=== PATIENT | female | born 1945 | race Caucasian/White ===

== ENCOUNTER 2018-12-24 06:12 | Day surgery (SDC) | payer MEDICARE, MEDICAID ==
[2018-12-24] VITALS (9 sets, daily range): BP systolic 116–137; BP diastolic 55–67
[~2018-12-24] VITALS: Ht 167.6 cm; Wt 89.2 kg
[~2018-12-24 06:12] MED LIST: ASPI-1264 PO; ATOR40TA PO; CLOP75TA35 PO; DEXILANT PO; DOXY100C2 PO; ESCI20TA PO; FURO80TA87 PO; HYDR-4353 PO; LORAZEPAM PO; METO-384 PO; NAPR220C15 PO; NITR0.4T48 SL; VITAMIN B12 PO; VITAMIN D3 PO; ZOLP5TAB8 PO; acyclovir
[2018-12-24] MEDS ORDERED: LIDOcaine 1% (10mg/ml) 2ml vial ONE (06:39)
[2018-12-24 07:33] LABS: BASOPHILS # (AUTO) 0.1 X10'3 (0-0.2); BASOPHILS % (AUTO) 0.8 % (0-1); EOSINOPHILS # (AUTO) 0.3 X10'3 (0-0.9); EOSINOPHILS % (AUTO) 3.4 % (0-6); HEMATOCRIT 46.4 % (35.0-45.0); HEMOGLOBIN 15.7 g/dl (12.0-16.0); LYMPHOCYTES % (AUTO) 33.4 % (21-51); MEAN CORPUSCULAR HEMOGLOBIN 28.8 PG (27.0-31.0); MEAN CORPUSCULAR HGB CONC 33.8 g/dL (33.0-36.5); MEAN CORPUSCULAR VOLUME 85.3 FL (78-98); MEAN PLATELET VOLUME 10.5 FL (7.4-10.4); MONOCYTES # (AUTO) 0.6 X10'3 (0-0.9); MONOCYTES % (AUTO) 7.2 % (2-12); NEUTROPHILS # (AUTO) 4.9 X10'3 (1.8-7.7); NEUTROPHILS % (AUTO) 55.2 % (42-75); PLATELET COUNT 215 X10'3 (140-440); RED BLOOD COUNT 5.44 X10'6 (4.20-5.60); RED CELL DISTRIBUTION WIDTH 13.9 % (11.5-14.5); WHITE BLOOD COUNT 8.9 X10'3 (4.5-11.0)
[2018-12-24] MEDS ORDERED: LOSA50TA3 PO (07:37)
[2018-12-24] MEDS ORDERED: fentaNYL/PF 50MCG/1 ML 2ML syringe ONE ×2 (07:37→08:50)
[2018-12-24] MEDS ORDERED: midazolam 2 mg/2 ml injection ONE ×2 (07:38→08:45)
[2018-12-24] MEDS ORDERED: LIDOcaine 1% (10mg/ml)w/preservative injection 20ml MDV ONE (07:38)
[2018-12-24] MEDS ORDERED: iohexol 350 MG/ML 50ML vial IV ONE (07:38)
[2018-12-24] MEDS ORDERED: iohexol 350MG/ML 100ml bottle IV ONE ×2 (07:38→09:18)
[2018-12-24 07:41] LABS: ALBUMIN 4.4 G/DL (3.4-5.0); ANION GAP 11 (8-16); BLOOD UREA NITROGEN 23 MG/DL (7-18); BUN/CREATININE RATIO 20.7 (6.6-38.0); CALCIUM 9.4 MG/DL (8.5-10.1); CHLORIDE 100 MMOL/L (99-107); CREATININE 1.11 MG/DL (0.40-0.90); GLUCOSE 134 MG/DL (70-104); SODIUM 140 MMOL/L (135-145); TOTAL CARBON DIOXIDE 29.2 MMOL/L (24-32); eGFR 48 ML/MIN
[2018-12-24 08:02] LABS: PARTIAL THROMBOPLASTIN TIME 28 SECONDS (22-32); PROTHROMBIN TIME 10.1 SECONDS (9.0-12.0)
[2018-12-24] MEDS ORDERED: sod bicarbonate 150mEq in D5W 1,150 ML IV ONE (08:30)
[2018-12-24] MEDS ORDERED: proCHLORperazine 10 MG/2 ml inj ONE (08:42)
[2018-12-24] MEDS ORDERED: potassium Cl 20mEq/100mL bag 100 ML IV ONE (08:42)
[2018-12-24] MEDS ORDERED: heparin 1,000unit/ml 10ml vial 10 ML ONE (09:07)
[2018-12-24] MEDS ORDERED: verapamil 2.5 mg/ml inj IV ONE (09:25)
[2018-12-24] MEDS ORDERED: clopidogrel 300mg tablet ONE (09:46)
[2018-12-24] MEDS ORDERED: normal saline 1000ml 1,000 ML IV SCH (10:25)
== END 2018-12-24 13:20 | disposition home or self-care (01) ==
LOC: SSTAY O 06:12
PROVIDERS: ATTEND Internal Medicine Cardiovascular Disease
DX: I25.119 Atherosclerotic heart disease of native coronary artery with unspecified angina pectoris (principal); I10 Essential (primary) hypertension; E78.5 Hyperlipidemia, unspecified; Z88.0 Allergy status to penicillin; Z88.6 Allergy status to analgesic agent; Z88.8 Allergy status to other drugs, medicaments and biological substances
CPT/HCPCS: 36415; 80048; 85025; 85610; 85730; 92920; 93458; 99152; 99153; A6257; C1874; C9600; J0780; J1644; J2001; J2250; J3010; J3480; J3490; J7030; Q9967; A4620; C1725; C1769; C1894

== ENCOUNTER 2021-04-26 09:02 | Day surgery (SDC) | payer MEDICARE, MEDICAID ==
[~2021-04-26] VITALS: Ht 167.6 cm; Wt 85.2 kg
[2021-04-26] VITALS (12 sets, daily range): BP systolic 100–199; BP diastolic 53–90
[~2021-04-26 09:02] MED LIST changes: +CLOP75TA34 PO; -CLOP75TA35 PO; +LOSA50TA3 PO; -METO-384 PO; -NAPR220C15 PO; -acyclovir
[2021-04-26] MEDS ORDERED: diphenhydrAMINE 25mg capsule PO PRN (09:35)
[2021-04-26 10:21] LABS: BASOPHILS # (AUTO) 0.1 X10'3 (0-0.2); BASOPHILS % (AUTO) 1.1 % (0-1); EOSINOPHILS # (AUTO) 0.3 X10'3 (0-0.9); EOSINOPHILS % (AUTO) 4.4 % (0-6); HEMATOCRIT 39.9 % (35.0-45.0); HEMOGLOBIN 13.7 g/dl (12.0-16.0); LYMPHOCYTES # (AUTO) 2.6 X10'3 (1.1-4.8); LYMPHOCYTES % (AUTO) 39.9 % (21-51); MEAN CORPUSCULAR HEMOGLOBIN 29.4 PG (27.0-31.0); MEAN CORPUSCULAR HGB CONC 34.5 g/dL (33.0-36.5); MEAN CORPUSCULAR VOLUME 85.4 FL (78-98); MEAN PLATELET VOLUME 9.3 FL (7.4-10.4); MONOCYTES # (AUTO) 0.5 X10'3 (0-0.9); MONOCYTES % (AUTO) 7.4 % (2-12); NEUTROPHILS # (AUTO) 3.1 X10'3 (1.8-7.7); NEUTROPHILS % (AUTO) 47.2 % (42-75); PLATELET COUNT 258 X10'3 (140-440); RED BLOOD COUNT 4.67 X10'6 (4.20-5.60); RED CELL DISTRIBUTION WIDTH 13.5 % (11.5-14.5); WHITE BLOOD COUNT 6.5 X10'3 (4.5-11.0)
[2021-04-26 10:43] LABS: ALBUMIN 4.1 G/DL (3.4-5.0); ANION GAP 12 (8-16); BLOOD UREA NITROGEN 10 MG/DL (7-18); BUN/CREATININE RATIO 9.8 (6.6-38.0); CALCIUM 8.7 MG/DL (8.5-10.1); CHLORIDE 105 MMOL/L (99-107); CREATININE 1.02 MG/DL (0.40-0.90); GLUCOSE 127 MG/DL (70-104); MAGNESIUM 2.1 MG/DL (1.5-2.4); POTASSIUM 3.4 MMOL/L (3.5-5.1); SODIUM 141 MMOL/L (135-145); TOTAL CARBON DIOXIDE 24.2 MMOL/L (24-32); eGFR 53 ML/MIN
[2021-04-26] MEDS: normal saline 1,000 ML IV SCH ×3 (11:20→23:48)
[2021-04-26] MEDS ORDERED: LIDOcaine 1% (10mg/ml)w/preservative injection 20ml MDV ONE (11:57)
[2021-04-26] MEDS ORDERED: heparin 1,000unit/ml 10ml vial 10 ML ONE (11:57)
[2021-04-26] MEDS ORDERED: fentaNYL/PF 50MCG/1 ML 2ML syringe ONE (11:57)
[2021-04-26] MEDS ORDERED: midazolam 1 mg/ML 2ml injection ONE ×3 (11:57→13:10)
[2021-04-26] MEDS ORDERED: iohexol 350 MG/ML 50ML vial IV ONE (11:58)
[2021-04-26] MEDS ORDERED: iohexol 350MG/ML 100ml bottle IV ONE ×2 (11:58→13:10)
[2021-04-26] MEDS ORDERED: clopidogrel 300mg tablet ONE (13:18)
[2021-04-26] MEDS ORDERED: CHOL100025 PO (16:55)
[2021-04-26] MEDS ORDERED: DEXL30CA3 PO (16:55)
[2021-04-26] MEDS ORDERED: CYAN500T71 PO (16:55)
[2021-04-26] MEDS ORDERED: ondansetron/PF 4mg/2ml inj IV PRN (18:00)
--- NOTE | 2021-04-26 18:00 | NUR ---
Patient in room PCU 3028. I have received report from FERNIE OBANDO and had the opportunity to ask questions and assume patient care.
[2021-04-26] MEDS ORDERED: HYDROcodone/acetaminophen 5mg/325mg tablet PO PRN (18:05)
[2021-04-26] MEDS ORDERED: proCHLORperazine 10 MG/2 ml inj IV PRN (18:05)
[2021-04-26] MEDS ORDERED: acetaminophen 325mg tablet PO PRN (18:05)
[2021-04-26] MEDS ORDERED: tizanidine 4mg tablet PO PRN (18:30)
[2021-04-26] MEDS ORDERED: nitroGLYCERIN 0.4mg SUBLingual tab SL PRN (18:30)
[2021-04-26] MEDS ORDERED: MELO15TA13 PO (18:31)
[2021-04-26] MEDS ORDERED: PER5325T PO (18:31)
[2021-04-26] MEDS ORDERED: CARB200T40 PO (18:31)
[2021-04-26] MEDS ORDERED: TIZA4TAB5 PO (18:31)
[2021-04-26] MEDS ORDERED: GABA300C PO (18:32)
[2021-04-26] MEDS: furosemide 40mg tablet PO SCH (19:41)
[2021-04-26] MEDS: HYDROcodone/acetaminophen 10/325mg tab PO PRN (19:42)
[2021-04-26] MEDS: carBAMazepine Ext. Release 200 MG TAB.ER.12H PO SCH (19:48)
[2021-04-26] MEDS: gabapentin 300mg capsule PO SCH (20:45)
[2021-04-27] MEDS: normal saline 1,000 ML IV SCH ×3 (02:05→09:48)
[2021-04-27] MEDS: HYDROcodone/acetaminophen 10/325mg tab PO PRN ×2 (02:09→06:23)
[2021-04-27 02:28] VITALS: BP 131/51
[2021-04-27 06:00] VITALS: BP 139/65
--- NOTE | 2021-04-27 06:08 | NUR ---
Problems reprioritized. Patient report given, questions answered & plan of care reviewed with ANTHONY OBANDO.
--- NOTE | 2021-04-27 06:09 | NUR ---
Patient in room PCU 3028. I have received report from GISELLA Kaufman and had the opportunity to ask questions and assume patient care.
[2021-04-27] MEDS ORDERED: aspirin 325mg tablet PO SCH (08:00)
[2021-04-27] MEDS ORDERED: atorvastatin 20mg tablet PO SCH (08:00)
[2021-04-27] MEDS ORDERED: losartan 50mg tablet PO SCH (08:00)
[2021-04-27] MEDS ORDERED: pantoprazole 40mg Tablet.DR PO SCH (08:00)
[2021-04-27] MEDS ORDERED: clopidogrel 75mg tablet PO SCH (08:00)
[2021-04-27] MEDS ORDERED: ESCITALOPRAM OXALATE 5 MG TABLET PO SCH (08:00)
[2021-04-27] MEDS ORDERED: non-formulary drug (Meloxicam (Mobic) 1 TAB) PO SCH (08:00)
[2021-04-27] MEDS ORDERED: cyanocobalamin 500mcg tablet PO SCH (08:00)
[2021-04-27] MEDS ORDERED: cholecalciferol (vitamin D3) 1,000 unit (25mcg) tablet PO SCH (08:00)
[2021-04-27] MEDS: gabapentin 300mg capsule PO SCH (08:51)
[2021-04-27] MEDS: furosemide 40mg tablet PO SCH (08:51)
[2021-04-27 08:52] VITALS: BP_SYST 139
[2021-04-27] MEDS: carBAMazepine Ext. Release 200 MG TAB.ER.12H PO SCH (08:59)
--- NOTE | 2021-04-27 11:27 | NUR ---
Patient stable for discharge per MD orders. PIV discontinued intact. Telemetry monitoring equipment removed and returned to telemetry office. All discharge instructions reviewed with patient, who was given the opportunity to ask questions, and indicated good understanding of all requirements. Patient assisted into w/c and taken to the front of the building, departing in a private vehicle with her friend as set key driver.
== END 2021-04-27 10:00 | disposition home or self-care (01) ==
LOC: SSTAY O 09:02 → PCU 3S 18:43 → SSTAY O 04-27 10:00
PROVIDERS: ATTEND Internal Medicine Cardiovascular Disease
DX: R07.82 Intercostal pain (principal); R07.89 Other chest pain; R06.09 Other forms of dyspnea; I25.119 Atherosclerotic heart disease of native coronary artery with unspecified angina pectoris; E78.5 Hyperlipidemia, unspecified; I10 Essential (primary) hypertension; J45.909 Unspecified asthma, uncomplicated; Z86.73 Personal history of transient ischemic attack (TIA), and cerebral infarction without residual deficits; Z90.49 Acquired absence of other specified parts of digestive tract; Z98.890 Other specified postprocedural states; Z85.42 Personal history of malignant neoplasm of other parts of uterus; Z85.038 Personal history of other malignant neoplasm of large intestine
CPT/HCPCS: 36415; 80048; 83735; 85025; 85610; 93005; 93458; 93571; 99152; 99153; C1751; C1760; C1769; C1874; C1894; C9600; J1644; J2001; J2250; J2405; J3010; J7030; Q0163; Q9967; A4620; A6258; G0378

== ENCOUNTER 2021-11-22 06:29 | Inpatient (IN) | payer MEDICARE, MEDICAID ==
[~2021-11-22] VITALS: Ht 167.6 cm; Wt 84.7 kg
[2021-11-22] VITALS (13 sets, daily range): BP systolic 130–166; BP diastolic 29–85
[~2021-11-22 06:29] MED LIST changes: +CARB200T40 PO; +CHOL100025 PO; +CYAN500T71 PO; -DEXILANT PO; +DEXL30CA3 PO; -DOXY100C2 PO; +GABA300C PO; -HYDR-4353 PO; -LORAZEPAM PO; +MELO15TA13 PO; +PER5325T PO; +TIZA-205 PO; -VITAMIN B12 PO; -VITAMIN D3 PO; -ZOLP5TAB8 PO
[2021-11-22] MEDS ORDERED: diphenhydrAMINE 25mg capsule PO PRN (06:55)
[2021-11-22] MEDS ORDERED: EZET10TA6 PO (07:25)
[2021-11-22] MEDS ORDERED: CARB200T PO (07:25)
[2021-11-22] MEDS ORDERED: POTA8CAP20 PO (07:25)
[2021-11-22] MEDS ORDERED: ASPI-1265 PO (07:25)
[2021-11-22] MEDS ORDERED: ZOLP5TAB2 PO (07:25)
[2021-11-22] MEDS ORDERED: [UNRECOGNIZED DRUG - CODE] PO (07:25)
[2021-11-22] MEDS ORDERED: Acyclovir PO (07:25)
[2021-11-22] MEDS ORDERED: LORA-269 PO (07:25)
[2021-11-22] MEDS ORDERED: dexilant PO (07:25)
[2021-11-22 07:47] LABS: BASOPHILS # (AUTO) 0.1 X10'3 (0-0.2); BASOPHILS % (AUTO) 0.8 % (0-1); EOSINOPHILS # (AUTO) 0.2 X10'3 (0-0.9); EOSINOPHILS % (AUTO) 3.3 % (0-6); HEMOGLOBIN 14.2 g/dl (12.0-16.0); LYMPHOCYTES # (AUTO) 2.6 X10'3 (1.1-4.8); LYMPHOCYTES % (AUTO) 36.8 % (21-51); MEAN CORPUSCULAR HEMOGLOBIN 28.6 PG (27.0-31.0); MEAN CORPUSCULAR HGB CONC 33.7 g/dL (33.0-36.5); MEAN CORPUSCULAR VOLUME 84.7 FL (78-98); MONOCYTES # (AUTO) 0.5 X10'3 (0-0.9); MONOCYTES % (AUTO) 7.6 % (2-12); NEUTROPHILS # (AUTO) 3.6 X10'3 (1.8-7.7); NEUTROPHILS % (AUTO) 51.5 % (42-75); PLATELET COUNT 254 X10'3 (140-440); RED BLOOD COUNT 4.96 X10'6 (4.20-5.60); RED CELL DISTRIBUTION WIDTH 14.3 % (11.5-14.5); WHITE BLOOD COUNT 7.1 X10'3 (4.5-11.0)
[2021-11-22] MEDS: normal saline 1,000 ML IV SCH ×4 (08:04→23:01)
[2021-11-22] MEDS ORDERED: iohexol 350 MG/ML 50ML vial IV ONE (08:18)
[2021-11-22] MEDS ORDERED: midazolam 1 mg/ML 2ml injection ONE ×2 (08:18→11:00)
[2021-11-22] MEDS ORDERED: iohexol 350MG/ML 100ml bottle IV ONE ×2 (08:18→11:37)
[2021-11-22] MEDS ORDERED: fentaNYL/PF 50MCG/1 ML 2ML syringe ONE (08:18)
[2021-11-22] MEDS ORDERED: LIDOcaine 1% (10mg/ml)w/preservative injection 20ml MDV ONE ×2 (08:18→11:13)
[2021-11-22] MEDS ORDERED: heparin 1,000unit/ml 10ml vial 10 ML ONE (08:18)
[2021-11-22 08:38] LABS: ALBUMIN 4.2 G/DL (3.4-5.0); ANION GAP 10 (8-16); BLOOD UREA NITROGEN 8 MG/DL (7-18); BUN/CREATININE RATIO 9.4 (6.6-38.0); CALCIUM 9.1 MG/DL (8.5-10.1); CHLORIDE 106 MMOL/L (99-107); CREATININE 0.85 MG/DL (0.40-0.90); GLUCOSE 132 MG/DL (70-104); POTASSIUM 3.8 MMOL/L (3.5-5.1); SODIUM 140 MMOL/L (135-145); TOTAL CARBON DIOXIDE 23.9 MMOL/L (24-32); eGFR 65 ML/MIN
[2021-11-22 08:48] LABS: MAGNESIUM 2.1 MG/DL (1.5-2.4)
[2021-11-22] MEDS ORDERED: proCHLORperazine 10 MG/2 ml inj ONE (11:12)
[2021-11-22] MEDS ORDERED: nitroGLYCERIN 0.4mg SUBLingual tab SL PRN (12:25)
[2021-11-22] MEDS ORDERED: tizanidine 4mg tablet PO PRN (12:25)
[2021-11-22] MEDS ORDERED: oxyCODONE/APAP 5-325mg tablet PO PRN (12:25)
[2021-11-22] MEDS ORDERED: acetaminophen 325mg tablet PO PRN ×2 (12:35)
[2021-11-22] MEDS ORDERED: magnesium hydroxide 30ml (MOM) UD suspension PO PRN (12:35)
--- NOTE | 2021-11-22 15:30 | NUR ---
Received pt from Short Stay. Right groin CDI no s/s of hematoma. VS WNL, NSR on the monitor. Pt is able to make her needs known. Staying flat for another 30 min per MD orders s/p heart cath.
[2021-11-22] MEDS: furosemide 40mg tablet PO SCH (19:49)
[2021-11-22] MEDS: NABUMETONE 500 MG PO SCH (19:49)
[2021-11-22] MEDS: docusate sod 100mg capsule PO SCH (19:50)
[2021-11-22] MEDS: gabapentin 300mg capsule PO SCH (19:50)
[2021-11-22] MEDS: carBAMazepine 100mg chewable tablet PO SCH (20:00)
[2021-11-22] MEDS ORDERED: zolpidem 5mg tablet PO SCH (21:00)
[2021-11-23 02:00] VITALS: BP 124/54
[2021-11-23 06:00] VITALS: BP 123/52
[2021-11-23] MEDS ORDERED: pantoprazole 40mg Tablet.DR PO SCH (07:30)
[2021-11-23] MEDS ORDERED: atorvastatin 20mg tablet PO SCH (08:00)
[2021-11-23] MEDS ORDERED: clopidogrel 75mg tablet PO SCH (08:00)
[2021-11-23] MEDS: gabapentin 300mg capsule PO SCH (08:00)
[2021-11-23] MEDS ORDERED: losartan 50mg tablet PO SCH (08:00)
[2021-11-23] MEDS ORDERED: potassium chloride 8mEq ER tablet PO SCH (08:00)
[2021-11-23] MEDS ORDERED: ACYCLOVIR PO SCH (08:00)
[2021-11-23] MEDS: furosemide 40mg tablet PO SCH (08:00)
[2021-11-23] MEDS: carBAMazepine 100mg chewable tablet PO SCH (08:00)
[2021-11-23] MEDS: docusate sod 100mg capsule PO SCH (08:00)
[2021-11-23] MEDS ORDERED: ezetimibe 10mg tablet PO SCH (08:00)
[2021-11-23] MEDS ORDERED: aspirin 81mg tab.chew PO SCH (08:00)
[2021-11-23] MEDS: NABUMETONE 500 MG PO SCH (08:00)
[2021-11-23] MEDS ORDERED: ESCITALOPRAM OXALATE 5 MG TABLET PO SCH (08:00)
[2021-11-23] MEDS ORDERED: LORazepam 1 MG tablet PO SCH (08:00)
--- NOTE | 2021-11-23 08:39 | NUR ---
Received call from DR Belkis Mc Pt is ok to go home. Follow up with Dr James in 3 weeks time.
[2021-11-23 10:00] VITALS: BP 143/45
--- NOTE | 2021-11-23 11:10 | NUR ---
Pt stable for D/C per MD orders. ALL d/c ppwk was reviewed with patient and patient verbalized understanding. PIV was removed from L [facility] - pt tolerated well. No new RX at this time. All personal belongings were sent with patient. Pt was wheeled down in W/C by nursing staff to private vehicle. She is driving herself home.
== END 2021-11-23 12:00 | disposition home or self-care (01) | DRG 251 ==
LOC: SSTAY O 06:29 → OBSVTOIN 13:40 → MED 3N 13:40
PROVIDERS: ADMIT Internal Medicine Cardiovascular Disease; ATTEND Internal Medicine Cardiovascular Disease
PROC: 4A023N7 Measurement of Cardiac Sampling and Pressure, Left Heart, Percutaneous Approach (ICD-10-PCS; principal; 2021-11-22)
PROC: 02713ZZ Dilation of Coronary Artery, Two Arteries, Percutaneous Approach (ICD-10-PCS; 2021-11-22)
PROC: B2111ZZ Fluoroscopy of Multiple Coronary Arteries using Low Osmolar Contrast (ICD-10-PCS; 2021-11-22)
PROC: B2151ZZ Fluoroscopy of Left Heart using Low Osmolar Contrast (ICD-10-PCS; 2021-11-22)
PROC: 4A033BC Measurement of Arterial Pressure, Coronary, Percutaneous Approach (ICD-10-PCS; 2021-11-22)
DX: T82.855A Stenosis of coronary artery stent, initial encounter (principal); I25.10 Atherosclerotic heart disease of native coronary artery without angina pectoris; K21.9 Gastro-esophageal reflux disease without esophagitis; Y84.0 Cardiac catheterization as the cause of abnormal reaction of the patient, or of later complication, without mention of misadventure at the time of the procedure; Y92.89 Other specified places as the place of occurrence of the external cause
CPT/HCPCS: 36415; 80048; 83735; 85025; 85610; 92920; 92921; 93005; 93458; 93571; 93572; 99152; 99153; A4620; A6258; C1725; C1751; C1760; C1769; C1894; G0378; J0780; J1644; J2250; J3010; J3490; J7030; Q0163; Q9967

== ENCOUNTER 2022-09-22 09:00 | Day surgery (SDC) | payer MEDICARE, MEDICAID ==
[~2022-09-22] VITALS: Ht 170.2 cm; Wt 81.4 kg
[2022-09-22] VITALS (9 sets, daily range): BP systolic 126–165; BP diastolic 56–83
[~2022-09-22 09:00] MED LIST changes: -ASPI-1264 PO; +ASPI-1265 PO; +Acyclovir PO; +CARB200T PO; -CARB200T40 PO; -CHOL100025 PO; -CYAN500T71 PO; -DEXL30CA3 PO; +EZET10TA6 PO; +LORA-269 PO; -MELO15TA13 PO; +POTA8CAP20 PO; +ZOLP5TAB2 PO; +[UNRECOGNIZED DRUG - CODE] PO; +dexilant PO
[2022-09-22] MEDS ORDERED: diphenhydrAMINE 25mg capsule PO PRN (09:25)
[2022-09-22] MEDS ORDERED: normal saline 1,000 ML IV SCH (09:25)
[2022-09-22] MEDS ORDERED: DOXY100C76 PO (09:52)
[2022-09-22] MEDS ORDERED: MELO-102 PO (09:52)
[2022-09-22 10:11] LABS: BASOPHILS % (AUTO) 0.3 % (0-1); EOSINOPHILS # (AUTO) 0.2 X10'3 (0-0.9); EOSINOPHILS % (AUTO) 2.5 % (0-6); HEMATOCRIT 40.7 % (35.0-45.0); HEMOGLOBIN 14.1 g/dl (12.0-16.0); LYMPHOCYTES # (AUTO) 2.8 X10'3 (1.1-4.8); LYMPHOCYTES % (AUTO) 41.8 % (21-51); MEAN CORPUSCULAR HEMOGLOBIN 29.9 PG (27.0-31.0); MEAN CORPUSCULAR HGB CONC 34.7 g/dL (33.0-36.5); MEAN CORPUSCULAR VOLUME 86.2 FL (78-98); MEAN PLATELET VOLUME 8.8 FL (7.4-10.4); MONOCYTES # (AUTO) 0.4 X10'3 (0-0.9); MONOCYTES % (AUTO) 5.6 % (2-12); NEUTROPHILS # (AUTO) 3.3 X10'3 (1.8-7.7); NEUTROPHILS % (AUTO) 49.8 % (42-75); PLATELET COUNT 256 X10'3 (140-440); RED BLOOD COUNT 4.72 X10'6 (4.20-5.60); RED CELL DISTRIBUTION WIDTH 13.1 % (11.5-14.5); WHITE BLOOD COUNT 6.7 X10'3 (4.5-11.0)
[2022-09-22 10:29] LABS: ALBUMIN 4.1 G/DL (3.4-5.0); ANION GAP 14 (8-16); BLOOD UREA NITROGEN 11 MG/DL (7-18); BUN/CREATININE RATIO 11.1 (6.6-38.0); CHLORIDE 102 MMOL/L (99-107); CREATININE 0.99 MG/DL (0.40-0.90); GLUCOSE 123 MG/DL (70-104); POTASSIUM 3.6 MMOL/L (3.5-5.1); SODIUM 138 MMOL/L (135-145); eGFR 54 ML/MIN
[2022-09-22] MEDS ORDERED: iohexol 350MG/ML 100ml bottle IV ONE ×2 (11:28→13:03)
[2022-09-22] MEDS ORDERED: heparin 1,000unit/ml 10ml vial 10 ML ONE (11:28)
[2022-09-22] MEDS ORDERED: LIDOcaine 1% 30ml preserv. free vial ONE (11:28)
[2022-09-22] MEDS ORDERED: fentaNYL/PF 50MCG/1 ML 2ML syringe ONE (11:28)
[2022-09-22] MEDS ORDERED: midazolam 1 mg/ML 2ml injection ONE ×2 (11:28→12:37)
[2022-09-22] MEDS ORDERED: clopidogrel 300mg tablet ONE ×2 (13:52→13:59)
[2022-09-22] MEDS ORDERED: ondansetron/PF 4mg/2ml inj IV PRN (14:25)
[2022-09-22] MEDS ORDERED: HYDROcodone/acetaminophen 5mg/325mg tablet PO PRN (14:25)
[2022-09-22] MEDS ORDERED: HYDROcodone/acetaminophen 10/325mg tab PO PRN (14:25)
[2022-09-22] MEDS ORDERED: proCHLORperazine 10 MG/2 ml inj IV PRN (14:25)
[2022-09-22] MEDS ORDERED: normal saline 1000ml 1,000 ML IV SCH (14:25)
--- NOTE | 2022-09-22 17:21 | NUR ---
confirmed prescriptions received at [facility] in [facility] for pt to hand picker when needed. [facility] will have Plavix and Aspirin prescriptions ready at 1730 per phone call to them this was the earliest they could have them available to hand picker. Pt's friend/ride has already attempted to hand picker and was told they were not ready. Will follow up with [facility] to confirm that patient was able to pick them up.
== END 2022-09-22 17:30 | disposition home or self-care (01) ==
LOC: SSTAY O 09:00
PROVIDERS: ATTEND Internal Medicine Cardiovascular Disease
DX: R94.39 Abnormal result of other cardiovascular function study (principal); I25.119 Atherosclerotic heart disease of native coronary artery with unspecified angina pectoris; I10 Essential (primary) hypertension; E78.5 Hyperlipidemia, unspecified; Z91.013 Allergy to seafood; Z79.899 Other long term (current) drug therapy
CPT/HCPCS: 36415; 80048; 83735; 85025; 85610; 92978; 93005; 93458; 93571; 99152; 99153; C1725; C1751; C1753; C1760; C1769; C1874; C1894; C9600; J1644; J2250; J3010; J3490; J7030; Q0163; Q9967